=== PATIENT | female | born 2000 | race Caucasian/White ===

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

== ENCOUNTER → 2022-08-16 | Outpatient (CLI) | payer OTHER | LOC: M LABDRWAD 11:55 | PROVIDERS: ATTEND Student in an Organized Health Care Education/Training Program | DX: K50.80 Crohn's disease of both small and large intestine without complications (principal); E53.8 Deficiency of other specified B group vitamins; R10.31 Right lower quadrant pain; E55.9 Vitamin D deficiency, unspecified ==

== ENCOUNTER → 2022-12-24 | Outpatient (REF) | payer OTHER | LOC: M LAB REF 16:10 | PROVIDERS: ATTEND Obstetrics & Gynecology | DX: N89.8 Other specified noninflammatory disorders of vagina (principal) ==

== ENCOUNTER → 2023-04-28 | Outpatient (REF) | payer OTHER ==
[2023-04-28 19:20] LABS: BASO % 0.5 % (0.0-1.0); EOS # 0.1 10^3/uL (0.0-0.5); EOS % 1.4 % (0.0-3.0); HEMATOCRIT 37.6 % (36.0-47.0); HEMOGLOBIN 12.3 g/dl (12.0-15.5); LYMPH # 1.8 10^3/uL (1.5-5.0); LYMPH % 21.3 % (24.0-44.0); MEAN CORPUSCULAR HEMOGLOBIN 28.5 pg (27.0-33.0); MEAN CORPUSCULAR HGB CONC 32.7 g/dl (32.0-36.5); MEAN CORPUSCULAR VOLUME 87.2 fl (80.0-96.0); MONO # 0.6 10^3/uL (0.0-0.8); MONO % 7.2 % (2.0-8.0); NEUTROPHILS # 5.8 10^3/uL (1.5-8.5); NEUTROPHILS % 69.4 % (36.0-66.0); PLATELET COUNT, AUTOMATED 363 10^3/uL (150-450); RED BLOOD COUNT 4.31 10^6/uL (4.00-5.40); WHITE BLOOD COUNT 8.4 10^3/uL (4.0-10.0)
[2023-04-28 19:48] LABS: ERYTHROCYTE SEDIMENTATION RATE 47 mm/hr (0-20)
[2023-04-28 19:53] LABS: THYROID STIMULATING HORMONE 2.712 uIU/ML (0.55-4.78)
[2023-04-28 19:54] LABS: C REACTIVE PROTEIN QUANTITATIV 0.8 MG/DL (<1.0); FERRITIN 13.9 NG/ML (7.3-270.7)
[2023-04-28 19:55] LABS: TOTAL 25(OH) VITAMIN D 24.2 NG/ML (20.0-100.0)
[2023-04-28 19:56] LABS: ALBUMIN 3.8 G/DL (3.2-5.2); BILIRUBIN,DIRECT 0.1 MG/DL (<0.4); BILIRUBIN,TOTAL 0.4 MG/DL (0.3-1.2); TOTAL PROTEIN 7.9 G/DL (5.7-8.2)
== END ==
LOC: M LABDRWAD 17:27
PROVIDERS: ATTEND Student in an Organized Health Care Education/Training Program
DX: K50.80 Crohn's disease of both small and large intestine without complications (principal)

== ENCOUNTER → 2023-04-29 | Outpatient (REF) | payer OTHER | LOC: M LABDRWAD 12:43 | PROVIDERS: ATTEND Student in an Organized Health Care Education/Training Program | DX: K50.80 Crohn's disease of both small and large intestine without complications (principal) ==